=== PATIENT | female | born 1930 | race Caucasian/White ===

== ENCOUNTER 2017-11-10 08:48 | Emergency (ER) | payer MEDICARE, OTHER ==
[~2017-11-10] VITALS: Ht 167.6 cm; Wt 54.4 kg
[~2017-11-10 08:48] MED LIST: COREG25 MG PO; IRON325 PO; NORVASC5 MG PO; SIMVASTATIN40 MG PO; VITAMIN D2000 UNIT PO; ZETIA10 MG PO; ZOFRAN ODT4 MG PO
[2017-11-10 09:19] LABS: ABSOLUTE LYMPHOCYTES 1.8 thou/uL (0.8-5.3); ABSOLUTE NEUTROPHILS 4.2 thou/uL (1.6-8.1); BASOPHILS 0.6 %; EOSINOPHILS 0.4 %; HEMOGLOBIN 8.6 gm/dL (12.0-15.0); LYMPHOCYTES 25.6 %; MCH 25.2 pg (26.0-34.0); MCHC 33.1 g/dL (28.0-37.0); MCV 76.3 fL (80.0-100.0); MONOCYTES 13.8 %; MPV 6.9 fl. (7.2-11.1); NUCLEATED RBCS 0 /100WBC; PLATELET COUNT* 322 thou/uL (150-400); POLYS 59.6 %; RBC 3.41 mil/uL (4.20-5.00); WBC 7.1 thou/uL (4.0-11.0)
[2017-11-10 09:43] LABS: ANION GAP 8 mmol/L (7-16); BUN 13 mg/dL (7-18); CALCIUM 8.2 mg/dL (8.5-10.1); CHLORIDE 96 mmol/L (98-107); CO2 28 mmol/L (21-32); CREATININE 0.6 mg/dL (0.6-1.3); GLUCOSE 147 mg/dL (70-99); POTASSIUM 3.9 mmol/L (3.5-5.1); SODIUM 132 mmol/L (136-145)
[2017-11-10 09:54] LABS: ALKALINE PHOSPHATASE 82 U/L (46-116); NT-PRO BRAIN NAT PEPTIDE 1748 pg/mL (<300); SGOT 28 U/L (15-37); SGPT 35 U/L (30-65); TOTAL BILIRUBIN 0.3 mg/dL (<0.1-1.0); TOTAL PROTEIN 5.5 g/dL (6.4-8.2); TROPONIN-I LEVEL <0.06 ng/mL (<0.06)
[2017-11-10 09:56] LABS: URINE BILIRUBIN NEGATIVE (Negative); URINE BLOOD TRACE (Negative); URINE CLARITY CLEAR; URINE COLOR YELLOW; URINE GLUCOSE-RANDOM NEGATIVE (Negative); URINE KETONES NEGATIVE (Negative); URINE PROTEIN 1+ (Negative); URINE SPECIFIC GRAVITY 1.015 (1.005-1.030)
[2017-11-10 09:58] LABS: URINE LEUKOCYTES-REFLEX 3+ (Negative); URINE NITRITE-REFLEX POSITIVE (Negative)
[2017-11-10 10:05] LABS: SQUAMOUS 0-3 Few /LPF (0-3); WBC CLUMPS Few (None Seen)
[2017-11-10 10:06] LABS: AMORPHOUS PHOSPHATES Moderate /LPF (None Seen); CASTS None Seen /LPF (None Seen); MUCUS None Seen strn/LPF (None Seen); URINE RBC 3-10 Few /HPF (0-2)
[2017-11-10 10:08] LABS: APTT 28.5 Seconds (25.0-31.3); INR 1.1; PROTIME 10.7 Seconds (9.20-11.50)
[2017-11-10] MEDS ORDERED: CIPROFLOXACIN500 M1 PO (12:00)
[2017-11-10 12:07] VITALS: BP 130/56
--- NOTE | 2017-11-10 15:51 | EKG ---
[place] [address] ELECTROCARDIOGRAM REPORT Name: NANI ZHANG Room: [facility]#: [id number] Admission: 11/10/17 Attend Phys: Discharge: 11/10/17 Date of : 30 Report #: [id number] THIS REPORT FOR: //name// [place] [facility] Test Date: 2017-11-10 Test Time: 08:56:50 Pat Name: NANI ZHANG Department: Room: Gender: F Floor Technician: KALI : 1930 Requested By: German Wallace Order Number: [id number] MD: Cedrikc Norman Measurements Intervals [place] Rate: 82 P: -2 NH: 191 QRS: 45 QRSD: 99 T: 46 QT: 351 QTc: 410 Interpretive Statements Sinus rhythm Abnormal R-wave progression, early transition No previous ECG available for comparison Electronically Signed On 11-10-2017 15:51:42 CDT by Cedrick Norman [email or web address] <ELECTRONICALLY SIGNED> By: Cedrick Norman MD, [facility] 11/10/17 1551 [id number] Cedrick Norman MD, FACC /EPI
== END 2017-11-10 12:16 | disposition home or self-care (01) ==
LOC: M.ERS 08:48
PROVIDERS: Family Medicine
DX: N39.0 Urinary tract infection, site not specified (principal); R42 Dizziness and giddiness; I10 Essential (primary) hypertension; Z90.710 Acquired absence of both cervix and uterus; Z91.041 Radiographic dye allergy status

== ENCOUNTER → 2017-12-09 | Outpatient (CLI) | payer MEDICARE, OTHER ==
[~2017-12-09] VITALS: Ht 167.6 cm; Wt 50.8 kg
[~2017-12-09] MED LIST changes: +CIPROFLOXACIN500 M1 PO
[2017-12-09 09:51] LABS: ABSOLUTE EOSINOPHILS 0.1 thou/uL (0.0-0.7); ABSOLUTE LYMPHOCYTES 1.4 thou/uL (0.8-5.3); ABSOLUTE MONOCYTES 0.5 thou/uL (0.0-1.2); BASOPHILS 0.6 %; EOSINOPHILS 0.7 %; HEMATOCRIT 26.7 % (37.0-47.0); HEMOGLOBIN 8.5 gm/dL (12.0-15.0); LYMPHOCYTES 17.6 %; MCHC 31.7 g/dL (28.0-37.0); MCV 72.4 fL (80.0-100.0); MONOCYTES 5.8 %; MPV 7.1 fl. (7.2-11.1); NUCLEATED RBCS 0 /100WBC; PLATELET COUNT* 337 thou/uL (150-400); POLYS 75.3 %; RBC 3.69 mil/uL (4.20-5.00)
[2017-12-09 09:59] LABS: APTT 29.6 Seconds (25.0-31.3); INR 1.2; PROTIME 11.3 Seconds (9.20-11.50)
[2017-12-09 10:21] LABS: ALBUMIN 1.8 g/dL (3.4-5.0); CALCIUM 8.4 mg/dL (8.5-10.1); CREATININE 0.6 mg/dL (0.6-1.3); POTASSIUM 3.8 mmol/L (3.5-5.1); TOTAL BILIRUBIN 0.5 mg/dL (<0.1-1.0); TOTAL PROTEIN 5.4 g/dL (6.4-8.2)
[2017-12-09 11:05] LABS: ESR (SEDRATE) 100 mm/hr (0-30)
== END ==
LOC: M.LAB 08:00 → M.SUR 12-16 07:20 → EDSTATUS 12-16 08:53 → M.SUR 12-16 09:14
PROVIDERS: Orthopaedic Surgery
DX: M17.11 Unilateral primary osteoarthritis, right knee (principal); E78.5 Hyperlipidemia, unspecified; I10 Essential (primary) hypertension; R79.1 Abnormal coagulation profile